=== PATIENT | female | born 1990 | race Caucasian/White ===

== ENCOUNTER 2021-04-28 05:56 | Day surgery (SDC) | payer OTHER ==
[2021-04-28] MEDS ORDERED: Lactated Ringers 1,000 ML IV SCH (06:00)
[2021-04-28] MEDS ORDERED: Versed 2 MG/2 ML Injection ONE (07:27)
[2021-04-28] MEDS ORDERED: DIPRIVAN 200 MG/20 ML IV ONE (07:27)
[2021-04-28] MEDS ORDERED: Lactated Ringers 1,000 ML IV ONE (07:34)
[2021-04-28 08:22] VITALS: O2SAT 98
[2021-04-28 08:53] VITALS: BP 106/64; PULSE 86
--- NOTE | 2021-04-28 09:00 | OP ---
SURGERY DATE/TIME: 04/28/2021 0735 PREOPERATIVE DIAGNOSES: 1) Anemia. 2) Chronic diarrhea. POSTOPERATIVE DIAGNOSES: 1) Mild gastritis. 2) Gastric polyp. 3) Normal colon. PROCEDURES: 1) EGD. 2) Colonoscopy. SURGEON: Umberto Landers M.D. ANESTHESIA: MAC by Garrett Killian CRNA. ESTIMATED BLOOD LOSS: Minimal. SPECIMENS: 1) Cold forceps biopsies from the duodenum for celiac. 2) Cold forceps biopsies gastric antrum for Helicobacter pylori. 3) Cold forceps gastric polypectomy. DESCRIPTION OF PROCEDURE: After informed written consent was obtained, the patient was taken to the endoscopy suite. She had a bite block inserted and then placed in the left lateral decubitus position. Anesthesia titrated to the desired level consciousness. The endoscope was inserted in the posterior oropharynx and under direct visualization the esophagus was traversed. The esophageal mucosa had normal appearance free of any lesions or defects. Upon entering the stomach, there was normal rugated gastric mucosa. There was a gastric polyp just inside the gastroesophageal junction and the superior aspect of the gastric cavity. There were some dry flakes of blood but no obvious ulceration or source of bleeding. The pylorus was traversed and the duodenum had a normal appearance. Two cold forceps biopsies were taken and sent for celiac disease based on the patient's symptoms. There was some mild gastritis changes in the antrum. Therefore, two cold forceps biopsies were taken from the gastric antrum and sent for Helicobacter pylori testing as well. The gastric polyp in the superior aspect of the stomach was grasped with forceps and removed as well and sent for pathology testing. Each of these areas had minimal blood loss. The scope was removed and the scopes were switched. Digital rectal exam showed normal sphincter tone and no internal lesions. The scope was inserted in the rectum and sequentially the entire colonic mucosa was traversed. The level of the cecum was reached and verified with direct visualization of the ileocecal valve. Upon withdrawal careful mucosal inspection revealed no gross abnormalities. Prior to withdrawal retroflexion was performed and showed no internal lesions. The scope was removed and the patient was transferred to the recovery room in good condition.
== END 2021-04-28 08:57 | disposition home or self-care (01) ==
LOC: SDC 05:56
PROVIDERS: ATTEND Family Medicine
DX: K29.70 Gastritis, unspecified, without bleeding (principal); D64.9 Anemia, unspecified; K52.9 Noninfective gastroenteritis and colitis, unspecified; K31.7 Polyp of stomach and duodenum
CPT/HCPCS: 84703; J2250; J2704

== ENCOUNTER 2024-02-19 22:09 | Emergency (ER) | payer OTHER ==
[2024-02-19 22:44] VITALS: TEMP 98.4
[2024-02-19 23:08] LABS: HCG URINE TEST NEGATIVE (NEGATIVE)
[2024-02-19 23:12] LABS: Appearance Clear (Clear); Bacteria Few /HPF (None Seen); Bilirubin Negative (Negative); Blood Small (Negative); Epithelial Cells Rare /HPF (None Seen); Glucose, Urine Negative (Negative); Hyaline Casts NONE SEEN /LPF (0-2); Ketones Negative (Negative); Leukocyte Esterase Small (Negative); Nitrite Negative (Negative); Ph 6.5 (4.6-8.0); Protein,Urine Dip Negative (Negative); Specific Gravity 1.015 (1.005-1.030); Urobilinogen 0.2 mg/dL (0.2); WBC 21-50 /HPF (0-5)
[2024-02-19 23:18] LABS: Absolute Neutrophil Ct (ANC) 6.52 x10^3/uL (1.56-6.13); BASOPHIL % 0.6 % (0.1-1.2); Basophil (Absolute #) 0.06 x10^3/uL (0.01-0.08); Eosinophil % 0.4 % (0.7-5.8); Eosinophil (Absolute #) 0.04 x10^3/uL (0.04-0.36); Hematocrit 38.5 % (34.1-44.9); Hemoglobin 13.2 g/dL (11.2-15.7); IMMATURE GRAN # 0.02 x10^3u/L (0.001-0.031); IMMATURE GRAN % 0.2 % (0.001-0.429); Lymphocyte (Absolute #) 1.87 x10^3/uL (1.18-3.74); Lymphocytes % 19.9 % (19.3-51.7); Mean Cell Volume 87.1 fL (79.4-94.8); Mean Corpuscular Hemoglobin 29.9 pg (25.6-32.2); Mean Corpuscular Hgb Concent. 34.3 g/dL (32.2-35.5); Mean Platelet Volume 10.6 fL (9.4-12.3); Monocyte (Absolute #) 0.87 x10^3/uL (0.24-0.86); Monocytes % 9.3 % (4.7-12.5); Neutrophil % 69.6 % (34.0-71.1); Platelet Count 260 x10^3/uL (182-369); Red Blood Count 4.42 x10^6/uL (3.93-5.22); Red Cell Distribution Width 12.5 % (11.7-14.4); White Blood Count 9.4 x10^3/uL (3.98-10.04)
[2024-02-19] MEDS ORDERED: OFIRMEV 100 ML IV ONE (23:20)
[2024-02-19] MEDS: OFIRMEV 1,000 MG/100 ML ML IV ONE (23:21)
[2024-02-19 23:36] LABS: ALBUMIN 4.4 g/dL (3.5-5.0); ANION GAP 10.7 MEQ/L (5-15); BILIRUBIN,TOTAL 0.3 mg/dL (0.2-1.3); Calcium 9.1 mg/dL (8.4-10.2); Creatinine 1 0.84 mg/dL (0.52-1.04); EST GLOMERULAR FILTRATION RATE 92.9 ML/MIN; Total Protein 7.7 g/dL (6.3-8.2)
--- NOTE | 2024-02-19 23:53 | ERPHSYRPT ---
- History of Present Illness Time Seen by Provider: 02/19/24 22:50 Source: patient Exam Limitations: no limitations Patient Subjective Stated Complaint: LLQ pain to the back Triage Nursing Assessment: Pt ambulated into ER, slowly. Pt c/o left lower back pain and pain to LLQ region. Pt states, "The back pain started on Sunday and Lyric Jiménez [employer] gave me toradol and it got better. I had no pain on Sunday and Sunday. We went to dinner tonight and the pain started again tonight at 8pm". Abd soft with active bs x4 quad, nontender on palpation. Pt had a transvaginal US done on 01/17/24 which pt states "showed a complex cyst". Pt denies any nausea or vomiting. Physician History: 33-year-old female presents to our emergency department for evaluation of left lower back pain radiating to her left lower pelvic and left lower quadrant region. Pain started last week on Sunday 4 days ago. Patient followed up with her primary care doctor. She was started on Toradol. Toradol resolve the pain. Patient went out to eat this evening pain reoccurred. Pain described as an ache that is localized. Patient advises that she had a workup done by early part of January including an ultrasound of the pelvis. Ultrasound reveals a complex left ovarian cyst. Patient also states that she had a workup for various infections. The STI workup was negative. Patient declined a pelvic exam today based on this recent workup. Patient denies urinary symptomology. Patient otherwise feels well. She voices no other complaints or concerns at this time. Portions of this note were created with voice recognition technology. There may be grammatical, spelling, punctuation or sound alike errors Timing/Duration: today Severity: moderate Modifying Factors: Improves With: nothing Associated Symptoms: denies symptoms Allergies/Adverse Reactions: No Known Drug Allergies Allergy (Verified 02/19/24 22:44) Home Medications: Bupropion HCl Xl 150 mg [Wellbutrin XL 150 MG] 2 tab PO DAILY 08/25/20 [History] Cyanocobalamin 1000 Mcg/ml [Cyanocobalamin B-12 1000 MCG/ML] 1,000 mcg IJ UD 08/25/20 [History] Ergocalciferol (Vitamin D2) [Vitamin D] 50,000 unit PO WEEKLY 08/25/20 [History] Levothyroxine Sodium 112 Mcg [Synthroid 112 Mcg] 1 tab PO DAILY 02/19/24 [History] Liothyronine Sodium [Cytomel] 5 mcg PO DAILY 02/19/24 [History] Hx Tetanus, Diphtheria Vaccination/Date Given: Yes Hx Influenza Vaccination/Date Given: Yes Hx Pneumococcal Vaccination/Date Given: No Travel Risk - International Travel Have you traveled outside of the country in past 3 weeks: No - Emerging Infectious Disease Are you exhibiting symptoms associated with any current EIDs: No - Review of Systems Constitutional: No Symptoms, No Fever, No Chills Eyes: No Symptoms Ears, Nose, & Throat: No Symptoms Respiratory: No Symptoms, No Cough, No Dyspnea Cardiac: No Symptoms, No Chest Pain, No Edema, No Syncope Abdominal/Gastrointestinal: No Symptoms, No Abdominal Pain, No Nausea, No Vomiting, No Diarrhea Genitourinary Symptoms: No Symptoms, No Dysuria Musculoskeletal: No Symptoms, No Back Pain, No Neck Pain Skin: No Symptoms, No Rash Neurological: No Symptoms, No Dizziness, No Focal Weakness, No Sensory Changes Psychological: No Symptoms Endocrine: No Symptoms Hematologic/Lymphatic: No Symptoms Immunological/Allergic: No Symptoms All Other Systems: Reviewed and Negative - Past Medical History Pertinent Past Medical History: Yes Neurological History: No Pertinent History ENT History: No Pertinent History Cardiac History: No Pertinent History Respiratory History: Sleep Apnea Endocrine Medical History: Hypothyroidism Musculoskeletal History: No Pertinent History GI Medical History: No Pertinent History History: No Pertinent History Psycho-Social History: Anxiety, Depression Female Reproductive Disorders: Endometriosis, Other Other Medical History: cyst to left ovary - Past Surgical History Past Surgical History: Yes Neuro Surgical History: No Pertinent History Cardiac: No Pertinent History Respiratory: No Pertinent History Gastrointestinal: No Pertinent History Genitourinary: No Pertinent History Musculoskeletal: No Pertinent History Female Surgical History: Section Other Surgical History: d&c, thyroidectomy due to thyroid cancer, breast biospy (negative), - Female History Hx Last Menstrual Period: Jan 25, 2024 Hx Now: No - Social History Smoking Status: Never smoker Exposure to second hand smoke: No Drug Use: none Patient Lives Alone: No - Social Determinants of Health Will the patient participate in the screening: Yes Do you worry about a steady place to live?: No Do you have any problems with any of the following?: No known problems In the past 12 months,have you had to go without utilities?: No Transportation Issues: No Has anyone in your support network made you feel unsafe?: No Have you or anyone in your house had to go without enough: No - Nursing Vital Signs Nursing Vital Signs: Initial Vital Signs Pulse Rate 103 H 02/19/24 22:41 Respiratory Rate 20 02/19/24 22:41 Blood Pressure 137/93 02/19/24 22:41 O2 Sat by Pulse Oximetry 98 02/19/24 22:41 Pain Scale Pain Intensity [] 6 Pain Intensity 6 - Physical Exam General Appearance: no apparent distress, alert Eye Exam: PERRL/EOMI, eyes nml inspection Ears, Nose, Throat Exam: normal ENT inspection, moist mucous membranes Neck Exam: normal inspection, full range of motion Respiratory Exam: normal breath sounds, lungs clear, airway intact, No respiratory distress Cardiovascular Exam: regular rate/rhythm, normal peripheral pulses Gastrointestinal/Abdomen Exam: soft, normal bowel sounds, No tenderness, No mass Pelvic Exam: other (Tenderness to palpation left pelvic region. Palpation reproduces pain.) Back Exam: normal inspection, normal range of motion, No CVA tenderness, No vertebral tenderness Extremity Exam: normal inspection, normal range of motion, pelvis stable Neurologic Exam: alert, oriented x 3, cooperative, normal mood/affect, sensation nml, No motor deficits Skin Exam: normal color, warm, dry, No rash Lymphatic Exam: No adenopathy SpO2 Interpretation: normal SpO2: 98 O2 Delivery: Room Air - Course Nursing assessment & vital signs reviewed: Yes - CT Exams Abdomen/Pelvis CT Interpretation: Tele-radiologist Report (Noncontrast CT abdomen pelvis e ssentially nonremarkable.) - Radiology Ultrasound Exam Pelvis Ultrasound: tele radiology report (Per professional healthcare representative no torsion. There is a left hemorrhagic cyst.) Ordered Tests: Active Orders 24 hr Category Date Time Status IV Insertion STAT Care 02/19/24 23:02 Active ABDOMEN AND PELVIS W/0 CONTRAS [CT] Stat Exams 02/19/24 23:52 Completed PELVIS TRANS VAGINAL [US] Stat Exams 02/20/24 01:24 Taken CBC W DIFF Stat Lab 02/19/24 23:16 Completed CMP Stat Lab 02/19/24 23:16 Completed CULTURE,URINE Stat Lab 02/19/24 23:02 Received HCG QUALITATIVE, URINE Stat Lab 02/19/24 23:03 Completed UA W/RFX UR CULTURE Stat Lab 02/19/24 23:02 Completed Medication Summary Discontinued Medications Generic Name Dose Route Start Last Admin Trade Name Amelia PRN Reason Stop Dose Admin Acetaminophen 1,000 mg in 100 mls @ 400 mls/hr 02/19/24 23:03 02/19/24 23:21 Ofirmev IV 02/19/24 23:17 400 mls/hr 1HRPRIOR ONE Administration Acetaminophen Confirm 02/19/24 23:20 Ofirmev Administered 02/19/24 23:21 Dose 100 mls @ ud IV .STK-MED ONE Ceftriaxone Sodium 1 gm in 100 mls @ 200 mls/hr 02/19/24 23:51 02/20/24 00:21 Rocephin 1 Gm / 100 Ml Nacl IV 02/20/24 00:20 200 mls/hr STAT ONE 200 mls/hr Administration Ceftriaxone Sodium Confirm 02/20/24 00:20 Rocephin 1 Gm / 100 Ml Nacl Administered 02/20/24 00:21 Dose 1 gm in 100 mls @ ud IV .STK-MED ONE Ketorolac Tromethamine 30 mg 02/20/24 01:22 02/20/24 01:26 Ketorolac Tromethamine 30 Mg/Ml Inj IV 02/20/24 01:23 30 mg STAT ONE Administration Ketorolac Tromethamine Confirm 02/20/24 01:24 Ketorolac Tromethamine 30 Mg/Ml Inj Administered 02/20/24 01:25 Dose 30 mg .ROUTE .STK-MED ONE Lab/Rad Data: Laboratory Result Diagrams 02/19/24 23:16 02/19/24 23:16 Laboratory Results 02/19/24 02/19/24 02/19/24 Range/Units 23:16 23:16 23:03 WBC 9.4 (3.98-10.04) x10^3/uL RBC 4.42 (3.93-5.22) x10^6/uL Hgb 13.2 (11.2-15.7) g/dL Hct 38.5 (34.1-44.9) % MCV 87.1 (79.4-94.8) fL MCH 29.9 (25.6-32.2) pg MCHC 34.3 (32.2-35.5) g/dL RDW 12.5 (11.7-14.4) % Plt Count 260 (182-369) x10^3/uL MPV 10.6 (9.4-12.3) fL Gran % 69.6 (34.0-71.1) % Immature Gran % (Auto) 0.2 (0.001-0.429) % Nucleat RBC Rel Count 0.0 (0.00-0.2) % Eos # (Auto) 0.04 (0.04-0.36) x10^3/uL Immature Gran # (Auto) 0.02 (0.001-0.031) x10^3u/L Absolute Lymphs (auto) 1.87 (1.18-3.74) x10^3/uL Absolute Monos (auto) 0.87 H (0.24-0.86) x10^3/uL Absolute Nucleated RBC 0.00 (0.00-0.012) x10^3u/L Lymphocytes % 19.9 (19.3-51.7) % Monocytes % 9.3 (4.7-12.5) % Eosinophils % 0.4 L (0.7-5.8) % Basophils % 0.6 (0.1-1.2) % Absolute Granulocytes 6.52 H (1.56-6.13) x10^3/uL Basophils # 0.06 (0.01-0.08) x10^3/uL Sodium 134 L (135-145) mmol/L Potassium 4.0 (3.5-5.1) mmol/L Chloride 103 (98-107) mmol/L Carbon Dioxide 25 (22-30) mmol/L Anion Gap 10.7 (5-15) MEQ/L BUN 10 (7-17) mg/dL Creatinine 0.84 (0.52-1.04) mg/dL Estimated GFR 92.9 ML/MIN Glucose 108 H (74-106) mg/dL Calcium 9.1 (8.4-10.2) mg/dL Total Bilirubin 0.30 (0.2-1.3) mg/dL AST 29 (14-36) U/L ALT 21 (0-35) U/L Alkaline Phosphatase 84 (38-126) U/L Serum Total Protein 7.7 (6.3-8.2) g/dL Albumin 4.4 (3.5-5.0) g/dL Urine Color (Yellow) Urine Appearance (Clear) Urine pH (4.6-8.0) Ur Specific [place] (1.005-1.030) Urine Protein (Negative) Urine Glucose (UA) (Negative) mg/dL Urine Ketones (Negative) Urine Blood (Negative) Urine Nitrite (Negative) Urine Bilirubin (Negative) Urine Urobilinogen (0.2) mg/dL Ur Leukocyte Esterase (Negative) U Hyaline Cast (Auto) (0-2) /LPF Urine Microscopic RBC (0-5) /HPF Urine Microscopic WBC (0-5) /HPF Ur Epithelial Cells (None Seen) /HPF Urine Bacteria (None Seen) /HPF Urine Culture Reflexed (NO) Urine HCG, Qual NEGATIVE (NEGATIVE) 02/19/24 Range/Units 23:02 WBC (3.98-10.04) x10^3/uL RBC (3.93-5.22) x10^6/uL Hgb (11.2-15.7) g/dL Hct (34.1-44.9) % MCV (79.4-94.8) fL MCH (25.6-32.2) pg MCHC (32.2-35.5) g/dL RDW (11.7-14.4) % Plt Count (182-369) x10^3/uL MPV (9.4-12.3) fL Gran % (34.0-71.1) % Immature Gran % (Auto) (0.001-0.429) % Nucleat RBC Rel Count (0.00-0.2) % Eos # (Auto) (0.04-0.36) x10^3/uL Immature Gran # (Auto) (0.001-0.031) x10^3u/L Absolute Lymphs (auto) (1.18-3.74) x10^3/uL Absolute Monos (auto) (0.24-0.86) x10^3/uL Absolute Nucleated RBC (0.00-0.012) x10^3u/L Lymphocytes % (19.3-51.7) % Monocytes % (4.7-12.5) % Eosinophils % (0.7-5.8) % Basophils % (0.1-1.2) % Absolute Granulocytes (1.56-6.13) x10^3/uL Basophils # (0.01-0.08) x10^3/uL Sodium (135-145) mmol/L Potassium (3.5-5.1) mmol/L Chloride (98-107) mmol/L Carbon Dioxide (22-30) mmol/L Anion Gap (5-15) MEQ/L BUN (7-17) mg/dL Creatinine (0.52-1.04) mg/dL Estimated GFR ML/MIN Glucose (74-106) mg/dL Calcium (8.4-10.2) mg/dL Total Bilirubin (0.2-1.3) mg/dL AST (14-36) U/L ALT (0-35) U/L Alkaline Phosphatase (38-126) U/L Serum Total Protein (6.3-8.2) g/dL Albumin (3.5-5.0) g/dL Urine Color Yellow (Yellow) Urine Appearance Clear (Clear) Urine pH 6.5 (4.6-8.0) Ur Specific [place] 1.015 (1.005-1.030) Urine Protein Negative (Negative) Urine Glucose (UA) Negative (Negative) mg/dL Urine Ketones Negative (Negative) Urine Blood Small A (Negative) Urine Nitrite Negative (Negative) Urine Bilirubin Negative (Negative) Urine Urobilinogen 0.2 (0.2) mg/dL Ur Leukocyte Esterase Small A (Negative) U Hyaline Cast (Auto) NONE SEEN (0-2) /LPF Urine Microscopic RBC 11-20 A (0-5) /HPF Urine Microscopic WBC 21-50 A (0-5) /HPF Ur Epithelial Cells Rare (None Seen) /HPF Urine Bacteria Few A (None Seen) /HPF Urine Culture Reflexed YES (NO) Urine HCG, Qual (NEGATIVE) - Progress Progress: improved Progress Note: 02/20/24 03:16 Case discussed with at 3:16 AM. He advised NSAIDs for pain control. Patient to follow-up with his office within the next 48 hours. 33-year-old female presents to emergency department for evaluation of left pelvic and back pain. Physical exam reveals tenderness at the left pelvic region. negative. UA significant for urinary tract infection. Patient received an oral dose of Macrobid in our ED. A prescription for the same forwarded to patient's pharmacy. CT abdomen pelvis density nonremarkable. Ultrasound ordered to rule out torsion. Torsion not observed. However there is a hemorrhagic cyst. Patient received Toradol and Ofirmev for pain control. Patient reassessed. Pain significantly improved. She currently rates pain 1 out of 10. Management discussed with patient's [employer] physician who advises discharged and pain control using NSAIDs. Findings discussed with patient. She agrees to follow-up with their [employer] physician within 48 hours for reevaluation. She voices no other complaints or concerns at this time. Portions of this note were created with voice recognition technology. There may be grammatical, spelling, punctuation or sound alike errors Complexity of problem addressed is moderate acute complicated no critical care time. Complexity of data reviewed and analyzed is extensive. Test ordered chest reviewed results analyzed and correlated clinically with history and physical exam. Management discussed with patient's [employer] physician. I discussed the case with at 3:16 AM. Risk of complication and or risk of morbidity/mortality of patient management is moderate. A prescription for Macrobid forwarded to patient's pharmacy. Vital stable. Time spent to discharge patient is approximately 15 minutes. Plan of care established for shared decision making. No social determinants of health present to impede follow-up. Portions of this note were created with voice recognition technology. There may be grammatical, spelling, punctuation or sound alike errors 02/20/24 03:23 Counseled pt/family regarding: lab results, diagnosis, need for follow-up, rad results - Departure Departure Disposition: Home Clinical Impression: UTI (urinary tract infection), Hemorrhagic cyst Condition: Stable Critical Care Time: No Referrals: ALEJANDRA JULIEN MD [Primary Care Provider] - Follow up/PCP as directed Additional Instructions: Discharge/Care Plan MICHAEL JIN was seen on 02/19/24 in the Emergency Room. The patient was counseled regarding Diagnosis,Lab results, Imaging studies, need for follow up and when to return to the Emergency Room. Prescriptions given: Discharge Note I have spoken with the patient and/or caregivers. I have explained the patient's condition, diagnosis and treatment plan based on the information available to me at this time. I have answered the patient's and/or caregiver's questions and addressed any concerns. The patient and/or caregivers have as good understanding of the patient's diagnosis, condition and treatment plan as can be expected at this point. The vital signs have been stable. The patient's condition is stable and appropriate for discharge from the emergency department. The patient will pursue further outpatient evaluation with the primary care physician or other designated or consulting physician as outlined in the discharge instructions. The patient and/or caregivers are agreeable to this plan of care and follow-up instructions have been explained in detail. The patient and/or caregivers have received these instruction. The patient/and or caregivers are aware that any significant change in condition or worsening of symptoms should prompt an immediate return to this or the closest emergency department or call 911. Prescriptions: Nitrofurantoin Macro 100 mg [Macrobid 100MG Capsule] 100 mg PO BID 7 Days #14 cap
[2024-02-20] MEDS ORDERED: ROCEPHIN 1 GM / 100 ML NaCl 1 GM/100 ML IVPB IV ONE (00:20)
[2024-02-20] MEDS: ROCEPHIN 1 GM / 100 ML NaCl 1 GM/100 ML IVPB IV ONE (00:21)
--- NOTE | 2024-02-20 00:34 | XRAY ---
CLINICAL HISTORY: pain COMPARISON: None TECHNIQUE: Contiguous axial images were obtained from the level of the diaphragm to the pubic symphysis without intravenous or oral contrast. Coronal and sagittal reconstructions were likewise performed and indicated to increase the sensitivity for detecting clinically relevant pathology. CT scan was performed according to ALARA (as low as reasonable achievable). FINDINGS: The visualized lung bases are clear. Evaluation of the abdominal and pelvic visceral organs is limited without intravenous contrast. The unenhanced liver, spleen, pancreas, and adrenal glands are grossly unremarkable. The gallbladder is present. The kidneys are normal in size and attenuation without obvious calcification. There is no hydronephrosis or perinephric stranding. The ureters are normal in caliber. No adenopathy or fluid collections are seen. No evidence of focal or diffuse bowel wall thickening or evidence of bowel obstruction is seen. The appendix is visualized in the right lower quadrant and appears within normal limits. The aorta is normal in caliber. The urinary bladder is normal in contour. Pelvic viscera are grossly unremarkable. No aggressive appearing osseous lesions are identified. Approximately 34 x 25 mm sized well defined cystic lesion is noted arising from left ovary- simple cyst - USG correlation suggested. IMPRESSION: A well defined cystic lesion is noted arising from left ovary- simple cyst - USG correlation suggested. No other abnormality seen. Electronically Signed by: Isiah Barnett MD. (02/20/2024 00:30:48 EST)
[2024-02-20] MEDS ORDERED: TORAdol 30 mg Injection ONE (01:24)
[2024-02-20] MEDS: TORAdol 30 mg Injection IV ONE (01:26)
[2024-02-20 02:07] VITALS: RESP 18
[2024-02-20 03:04] VITALS: BP 112/76; PULSE 73; O2SAT 98
--- NOTE | 2024-02-20 08:37 | XRAY ---
Indication: Left pelvic pain. Torsion. Two-dimensional transvaginal pelvic sonogram performed. Comparison: January 17, 2024 Uterus again anteverted measuring 8.7 x 4.8 x 5.1 cm. Stable small uterine fibroids and tiny cervical nabothian cyst. Endometrial stripe measures 9.1 mm. No endometrial cavity mass or fluid collection. Right ovary measures 2.8 x 1.3 x 2.7 cm and left measures 4.7 x 2.8 x 4.0 cm. Normal perfusion bilaterally. Left ovary again demonstrates complex echogenic cyst measuring 2.8 x 2.4 x 3.5 cm, previously 3.4 x 3.6 x 3.4 cm. Again no suspicious adnexal mass or free fluid. Impression: 1. Slightly smaller complex left ovary cyst. Again recommend follow-up following at least 2 menstrual cycles. 2. Stable uterine fibroids and nabothian cyst. 3. Remaining transvaginal pelvic sonogram is negative. Comment: Preliminary report was given.
== END 2024-02-20 03:33 | disposition home or self-care (01) ==
LOC: ED 22:09
DX: N39.0 Urinary tract infection, site not specified (principal); N83.202 Unspecified ovarian cyst, left side; M54.50 Low back pain, unspecified; R10.32 Left lower quadrant pain; Z79.899 Other long term (current) drug therapy
CPT/HCPCS: 36415; 74176; 76830; 80053; 81001; 81025; 85025; 87077; 87086; 87186; 96374; 99285; J0696; J1885